=== PATIENT | female | born 1990 | race Hispanic/Latino ===

== ENCOUNTER 2022-02-10 19:57 | Emergency (ER) | payer OTHER | END 2022-02-10 20:30 | disposition home or self-care (01) | LOC: ER 20:16 | DX: S00.83XA Contusion of other part of head, initial encounter (principal); W22.09XA Striking against other stationary object, initial encounter; Y92.89 Other specified places as the place of occurrence of the external cause; R50.9 Fever, unspecified; E78.5 Hyperlipidemia, unspecified | CPT/HCPCS: 99282 ==